=== PATIENT | female | born 1975 | race Two or more races ===

== ENCOUNTER 2016-09-24 21:21 | Emergency (ER) | payer SELFPAY ==
[2016-09-24 22:24] LABS: ABSOLUTE BASOPHILS # (AUTO) 0.1 10^3/uL (0.0-0.2); ABSOLUTE EOSINOPHILS # (AUTO) 0.2 10^3/uL (0.0-0.6); ABSOLUTE LYMPHOCYTES (AUTO) 3.2 10^3/uL (0.5-4.7); ABSOLUTE MONOCYTES (AUTO) 1.4 10^3/uL (0.1-1.4); ABSOLUTE NEUT (AUTO) 7.8 10^3/uL (1.7-8.2); BASOPHILS % (AUTO) 1.1 % (0-2); EOSINOPHILS % (AUTO) 1.2 % (0-6); HEMATOCRIT 35.9 % (36.0-47.0); HEMOGLOBIN 11.3 g/dL (12.0-15.5); LYMPHOCYTES % (AUTO) 25.2 % (13-45); MEAN CORPUSCULAR HEMOGLOBIN 23.1 pg (27.0-33.4); MEAN CORPUSCULAR HGB CONC 31.6 g/dL (32.0-36.0); MEAN CORPUSCULAR VOLUME 73 fl (80-97); MONOCYTES % (AUTO) 11.4 % (3-13); RED BLOOD COUNT 4.92 10^6/uL (3.72-5.28); RED CELL DISTRIBUTION WIDTH 17.8 % (11.5-14.0); SEGMENTED NEUTROPHILS % (AUTO) 61.1 % (42-78); WHITE BLOOD COUNT 12.7 10^3/uL (4.0-10.5)
[2016-09-24 22:35] LABS: APPEARANCE,URINE SLIGHTLY-CLOUDY; BILIRUBIN,URINE NEGATIVE (NEGATIVE); GLUCOSE, URINE NEGATIVE (NEGATIVE); KETONES,URINE NEGATIVE (NEGATIVE); LEUKOCYTE ESTERASE,URINE SMALL (NEGATIVE); NITRITE,URINE NEGATIVE (NEGATIVE); PROTEIN,URINE 30 mg/dL (NEGATIVE); URINE SPECIFIC GRAVITY 1.031; UROBILINOGEN,URINE NEGATIVE mg/dL (<2.0)
[2016-09-24 22:46] LABS: ALANINE AMINOTRANSFERASE 27 U/L (9-52); ALBUMIN 4.4 g/dL (3.5-5.0); ALKALINE PHOSPHATASE 153 U/L (38-126); ANION GAP 14 (5-19); ASPARTATE AMINO TRANSFERASE 24 U/L (14-36); BILIRUBIN,DIRECT 0.1 mg/dL (0.0-0.4); BILIRUBIN,TOTAL 0.3 mg/dL (0.2-1.3); BLOOD UREA NITROGEN 16 mg/dL (7-20); CALCIUM 10.2 mg/dL (8.4-10.2); CARBON DIOXIDE 26 mmol/L (22-30); CHLORIDE 103 mmol/L (98-107); CREATINE KINASE 363 U/L (30-135); CREATININE RESULT 0.83 mg/dL (0.52-1.25); GLUCOSE 79 mg/dL (75-110); POTASSIUM 3.8 mmol/L (3.6-5.0); SODIUM 142.5 mmol/L (137-145); TOTAL PROTEIN 7.6 g/dL (6.3-8.2)
[2016-09-24 22:54] LABS: URINE BARBITURATES SCREEN NEGATIVE; URINE METHADONE SCREEN NEGATIVE; URINE OPIATES LOW UNCONFIRMED POSITIVE; URINE PHENCYCLIDINE SCREEN NEGATIVE
[2016-09-24 23:02] LABS: CREATINE KINASE MB 2.73 ng/mL (<4.55)
[2016-09-24 23:11] LABS: TROPONIN I < 0.012 ng/mL
--- NOTE | 2016-09-24 23:29 | ER Document Report ---
ED General - General Chief Complaint: Overdose Stated Complaint: UNCONSCIOUS Time seen by provider: 23:29 Mode of Arrival: Ambulatory Information source: Patient Notes: This is a 41-year-old female with a history of hypertension, depression and anxiety. EMS was called to the home because of decreased responsiveness. Patient had reported that she had taken some pills. She had pinpoint pupils as reported by EMS and was given Narcan with some improvement. In the emergency room, the patient is lethargic but arousable with stimuli. She states that she has always been depressed but was not trying to kill herself. She states that she was trying to sleep and had taken Advil PM, trazodone, Flexeril, Lexapro and Ambien. Patient denies taking these pills and abundance but she is not able to tell me exactly how many pills she took. TRAVEL OUTSIDE OF THE [place] IN LAST 30 DAYS: No - HPI Onset: Just prior to arrival Onset/Duration: Sudden Quality of pain: No pain Severity: None Pain Level: Denies Associated symptoms: denies: Chest pain, Fever, Sinus pain/drainage, Shortness of breath Exacerbated by: Denies Relieved by: Denies Similar symptoms previously: No Recently seen / treated by doctor: No - Related Data Allergies/Adverse Reactions: azithromycin [Azithromycin] Allergy (Verified 05/12/15 15:19) erythromycin base [Erythromycin Base] Allergy (Verified 05/12/15 15:19) Sulfa (Sulfonamide Antibiotics) Allergy (Verified 05/12/15 15:19) tetracycline [Tetracycline] Allergy (Verified 05/12/15 15:19) Past Medical History - General Information source: Patient - Social History Smoking Status: Unknown if Ever Smoked Cigarette use (# per day): No Chew tobacco use (# tins/day): No Smoking Education Provided: No Frequency of alcohol use: unknown Drug Abuse: Other - Unknown Lives with: Family Family History: Reviewed & Not Pertinent, Other - Does not know her father, her mother is alive and well. Patient has suicidal ideation: No Patient has homicidal ideation: No - Past Medical History Cardiac Medical History: Reports: Hx Hypertension - borderline, no medications Pulmonary Medical History: Reports: None EENT Medical History: Reports: None Neurological Medical History: Reports: None Endocrine Medical History: Reports: None Renal/ Medical History: Reports: None Malignancy Medical History: Reports: None GI Medical History: Reports: None Musculoskeltal Medical History: Reports None Skin Medical History: Reports None Psychiatric Medical History: Reports: Hx Anxiety Traumatic Medical History: Reports: None Infectious Medical History: Reports: None Past Surgical History: Reports: Hx Tonsillectomy - adnoidectomy, Hx Tubal Ligation - Immunizations Hx Diphtheria, Pertussis, Tetanus Vaccination: Yes Review of Systems - Review of Systems Constitutional: No symptoms reported EENT: No symptoms reported Cardiovascular: No symptoms reported Respiratory: No symptoms reported Gastrointestinal: No symptoms reported Genitourinary: No symptoms reported Female Genitourinary: No symptoms reported Musculoskeletal: No symptoms reported Skin: No symptoms reported Hematologic/Lymphatic: No symptoms reported Neurological/Psychological: See HPI Physical Exam - Vital signs Vitals: BP Pulse Ox 145/87 H 100 09/24/16 21:26 09/24/16 21:26 Notes: Physical exam: GENERAL: 41-year-old female, lethargic, arousable with significant stimuli. HEAD: Atraumatic, normocephalic. EYES: Pupils equal round and reactive to light, extraocular movements intact, sclera anicteric, conjunctiva are normal. ENT: TMs normal, nares patent, oropharynx clear without exudates. Moist mucous membranes. NECK: Normal range of motion, supple without lymphadenopathy or JVD. LUNGS: Breath sounds clear to auscultation bilaterally and equal. No wheezes rales or rhonchi. HEART: Regular rate and rhythm without murmurs, rubs or gallops. ABDOMEN: Soft, normoactive bowel sounds. No tenderness to palpation. No guarding, no rebound. No masses appreciated. EXTREMITIES: Normal range of motion, no pitting or edema. No clubbing or cyanosis. NEUROLOGICAL: Lethargic, moving all extremities PSYCH: Depressed SKIN: Warm, Dry, normal turgor, no rashes or lesions noted. Course - Vital Signs Vital signs: Temp Pulse Resp BP Pulse Ox 97.7 F 19 136/75 H 100 09/24/16 21:29 09/24/16 23:01 09/24/16 23:01 09/24/16 21:26 - Laboratory Result Diagrams: 09/24/16 22:00 09/24/16 22:00 Laboratory results interpreted by me: 09/24/16 09/24/16 09/24/16 22:00 22:00 22:00 WBC 12.7 H Hgb 11.3 L Hct 35.9 L MCV 73 L MCH 23.1 L MCHC 31.6 L RDW 17.8 H Alkaline Phosphatase 153 H Creatine Kinase 363 H Urine Protein 30 H Ur Leukocyte Esterase SMALL H - Diagnostic Test Radiology reviewed: Image reviewed, Reports reviewed - CT of the head shows no acute intracranial pathology. Chest x-ray shows no infiltrates - EKG Interpretation by Me Rate: Normal Rhythm: NSR - EKG shows normal sinus rhythm with a ventricular rate of 84, no acute ST-T wave changes Discharge - Discharge Clinical Impression: overdose, depression, UTI Condition: Stable Disposition: PSYCH HOSP/UNIT
[2016-09-24] MEDS ORDERED: CEFTRIAXONE 1 GM/D5W RTU 50 ML IV ONE (23:48)
--- NOTE | 2016-09-25 08:39 | EKG REPORT ---
SEVERITY:- OTHERWISE NORMAL ECG - SINUS OR ECTOPIC ATRIAL RHYTHM : Confirmed by: Navarro Mckeon 25-Sep-2016 08:38:53
--- NOTE | 2016-09-25 09:29 | ER Document Report ---
Doctor's Note Notes: 09/25/16 09:29 Lab work vital signs have been reviewed. At this time patient is currently stable with no overnight events requiring no intervention at this time. Patient stable for transfer or other disposition
[2016-09-25] MEDS ORDERED: CETIRIZINE 5 MG TABLET PO ONE (09:59)
--- NOTE | 2016-09-25 10:51 | ER Document Report ---
ED Psych Disorder / Suicide - General Mode of Arrival: Ambulatory Information source: Patient, Parent, Relative TRAVEL OUTSIDE OF THE [place] IN LAST 30 DAYS: No - HPI Patient complains to provider of: Overdose - accidental Onset: Just prior to arrival Onset was: Sudden Suicide Risk Factors: Bipolar Situational problems related to: Spouse - found out cheated, process of separation Normal mood: Yes Associated symptoms: Normal affect, Normal mood, Depressed - pt endorses increase of depression secondary to spousal stressors, Unable to sleep - x 2 days prior to arrival Similar symptoms previously: No Recently seen / treated by doctor: Yes - Dr. Thomas last week <BRIA COOK - Last Filed: 09/25/16 10:45> <NIKHIL ARCOS - Last Filed: 09/25/16 10:53> - General Chief Complaint: Overdose Stated Complaint: UNCONSCIOUS - HPI Notes: Patient presents after she states she took her prescribed medications all at one time. Patient denies suicidal ideations or intent. Patient's mother is bedside and denies concerns patient was attempting to harm herself. (BRIA COOK) - Related Data Allergies/Adverse Reactions: azithromycin [Azithromycin] Allergy (Verified 05/12/15 15:19) erythromycin base [Erythromycin Base] Allergy (Verified 05/12/15 15:19) Sulfa (Sulfonamide Antibiotics) Allergy (Verified 05/12/15 15:19) tetracycline [Tetracycline] Allergy (Verified 05/12/15 15:19) Past Medical History - General Information source: Patient - Social History Smoking Status: Unknown if Ever Smoked Cigarette use (# per day): No Chew tobacco use (# tins/day): No Frequency of alcohol use: unknown Drug Abuse: Other - Unknown Lives with: Family Family History: Reviewed & Not Pertinent, Other - Does not know her father, her mother is alive and well. Patient has suicidal ideation: No Patient has homicidal ideation: No - Past Medical History Cardiac Medical History: Reports: Hx Hypertension - borderline, no medications Pulmonary Medical History: Reports: None EENT Medical History: Reports: None Neurological Medical History: Reports: None Endocrine Medical History: Reports: None Renal/ Medical History: Reports: None Malignancy Medical History: Reports: None GI Medical History: Reports: None Musculoskeltal Medical History: Reports None Skin Medical History: Reports None Psychiatric Medical History: Reports: Hx Anxiety Traumatic Medical History: Reports: None Infectious Medical History: Reports: None Past Surgical History: Reports: Hx Tonsillectomy - adnoidectomy, Hx Tubal Ligation - Immunizations Hx Diphtheria, Pertussis, Tetanus Vaccination: Yes <BRIA COOK - Last Filed: 09/25/16 10:45> Course - Laboratory Result Diagrams: 09/24/16 22:00 09/24/16 22:00 <BRIA COOK - Last Filed: 09/25/16 10:45> - Laboratory Result Diagrams: 09/24/16 22:00 09/24/16 22:00 <NIKHIL ARCOS - Last Filed: 09/25/16 10:53> - Re-evaluation Re-evalutation: 09/25/16 10:52 Patient coming in after accident overdose. Patient does state this was accidental overdose. Patient does have a urinary tract infection. The patient on Macrobid. Patient otherwise has been cleared from a psychiatric standpoint. Patient was discharged home. (NIKHIL ARCOS) - Vital Signs Vital signs: Temp Pulse Resp BP Pulse Ox 98.3 F 17 136/74 H 99 09/25/16 10:10 09/25/16 10:01 09/25/16 09:30 09/25/16 10:11 - Laboratory Laboratory results interpreted by me: 09/24/16 09/24/16 09/24/16 22:00 22:00 22:00 WBC 12.7 H Hgb 11.3 L Hct 35.9 L MCV 73 L MCH 23.1 L MCHC 31.6 L RDW 17.8 H Alkaline Phosphatase 153 H Creatine Kinase 363 H Urine Protein 30 H Ur Leukocyte Esterase SMALL H Salicylates Acetaminophen 09/24/16 22:00 WBC Hgb Hct MCV MCH MCHC RDW Alkaline Phosphatase Creatine Kinase Urine Protein Ur Leukocyte Esterase Salicylates < 1.0 L Acetaminophen < 10 L Discharge <BRIA COOK - Last Filed: 09/25/16 10:45> <NIKHIL ARCOS - Last Filed: 09/25/16 10:53> - Discharge Clinical Impression: overdose, depression, UTI, Bipolar 1 disorder, depressed, moderate Condition: Stable Disposition: HOME, SELF-CARE Instructions: Bipolar Disorder ([facility]), Depression ([facility]) Additional Instructions: Please follow up with your psychiatric provider to discuss your reported concerns regarding your medications. Please also follow up to request more frequent therapy appointments to assist you in processing your increased stressors. Please take your medications only as prescribed. You have been provided with community resources to include mobile crisis. Please return to the ED for SI. Prescriptions: Nitrofurantoin/Nitrofuran Mac [Macrobid 100 mg Capsule] 1 tab PO BID #20 capsule
[2016-09-25 11:02] VITALS: BP 131/72
--- NOTE | 2016-09-25 11:22 | PSYCHOLOGICAL NOTE ---
Psych Note - Psych Note Psych Note: Patient is a 41 year old female who presents via EMS last night after ingesting a number of pills with unclear intent. Patient did note to ED MD that she was attempting to go to sleep, but could not provide quantity of pills ingested. Patient was given Narcan by EMS with some noted improvement. Patient was placed on IVC and held overnight for further observation and disposition. Patient this morning states she was not attempting suicide, and is not suicidal. 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 She states she did not take any of her medications prior to going, and actually stopped part way through because of a headache. Patient states in addition to being out in the heat, she ate only half a hamburger and drank a bottle of water. Patient states when she got home, she took all of her prescribed medications at once with the plan to go to bed. Patient states she saw her provider, Dr. Thomas at [facility] and reported continued sleep probs even with her prescribed Ambien. Patient states Dr. Thomas discontinued the Ambien and prescribed her something stronger. She states last night was her first time taking the pill. Patient does endorse an increase in social stressors, specifically related to her and his alleged infidelity (discovered this weekend). She states she has children and a job she loves and does not want to . Patient reports one prior suicide attempt 10+ years ago and denies remembering her method. Otherwise, patient states she feels her Lexapro and Wellbutrin work well, but reports she does not like also taking Ativan for anxiety in the afternoon. She additionally reports she is prescribed Phentermine for weight loss, and that her psychiatrist is aware of this prescription. Patient provides verbal consent to speak with her mother who is bedside. Patient's mother adamant that her only concern is the number of medications she is prescribed, and not that she would attempt suicide. MOther offered no other reports or concerns. Patient is A&O x4. Mood is happy with smiling/normal affect. Patient denies SI/ HI, intent, plan, or means. Patient denies A/V H; delusions not noted. Thought processes were organized. Conversational speech was WNL. Intellectual abilities were estimated within average range. Attention and focus were fair. Insight and impulse control were fair; judgment poor. Unspecified Bipolar and Related Disorder, per history Unspecified Anxiety Disorder, per history Patient is psychiatrically cleared and recommended for rescind IVC to discharge to her mother. Patient denies suicide intent. Patient's mother denies concerns related to self harm and or intentionally overdosing. Patient is agreeable to follow up with her provider, and also request more frequent therapy appointments. 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 I consulted with Dr. Cesar in regards to the care and management of this patient. ED MD is in agreement with disposition and recommendations.
== END 2016-09-25 11:10 | disposition home or self-care (01) ==
LOC: ER 21:21
DX: T50.901A Poisoning by unspecified drugs, medicaments and biological substances, accidental (unintentional), initial encounter (principal); R53.83 Other fatigue; F31.9 Bipolar disorder, unspecified; N39.0 Urinary tract infection, site not specified; Z63.5 Disruption of family by separation and divorce; Z88.1 Allergy status to other antibiotic agents; Z88.2 Allergy status to sulfonamides
CPT/HCPCS: 93005; 99285; 51701; 96365; 36415; 87086; 82553; 82550; 80307 ×3; 85025; 80053; 81001; 84484; 71010; 70450; 93010; J0696; J3490

== ENCOUNTER 2018-11-05 12:20 | Emergency (ER) | payer BC ==
[2018-11-05] MEDS ORDERED: MECLIZINE HCL 25 MG TABLET PO ONE (13:40)
--- NOTE | 2018-11-05 13:42 | ER Document Report ---
ED Medical Screen (RME) - General Chief Complaint: Vertigo Stated Complaint: DIZZINESS Time Seen by Provider: 11/05/18 13:34 Mode of Arrival: Ambulatory Information source: Patient TRAVEL OUTSIDE OF THE [place] IN LAST 30 DAYS: No - HPI Patient complains to provider of: DIZZINESS Notes: 11/05/18 13:40 Patient here with complaints of feeling dizzy. She states that she has felt dizzy for about 4 weeks now. She has had some intermittent headaches with it as well. She states that it feels like her visions causing her to see double and triple at times. She feels like that forwards or the hoang are moving. She states that is been constant. No injury. No blood thinners. Exam No distress, nontoxic. Lungs clear and equal throughout. Heart sounds normal. Nonfocal neuro exam. Plan CBC, CMP, chest x-ray, EKG, head CT due to the fact that the patient is having constant problems with dizziness and changes in vision. An initial examination was made on the patient as part of the triage process, and it was determined a more comprehensive evaluation was necessary. Initial labs were ordered and patient was transferred to another provider in the ED who assumed care and finished evaluation and plan. - Related Data Allergies/Adverse Reactions: azithromycin [Azithromycin] Allergy (Verified 05/12/15 15:19) erythromycin base [Erythromycin Base] Allergy (Verified 05/12/15 15:19) Sulfa (Sulfonamide Antibiotics) Allergy (Verified 05/12/15 15:19) tetracycline [Tetracycline] Allergy (Verified 05/12/15 15:19) Past Medical History - Social History Chew tobacco use (# tins/day): No Frequency of alcohol use: None Drug Abuse: None - Past Medical History Cardiac Medical History: Reports: Hx Hypertension - borderline, no medications Renal/ Medical History: Denies: Hx Peritoneal Dialysis Psychiatric Medical History: Reports: Hx Anxiety, Hx Depression Past Surgical History: Reports: Hx Tonsillectomy - adnoidectomy, Hx Tubal Ligation - Immunizations Hx Diphtheria, Pertussis, Tetanus Vaccination: Yes Physical Exam - Vital signs Vitals: Temp Pulse Resp BP Pulse Ox 98.7 F 68 16 156/104 H 99 11/05/18 12:27 11/05/18 12:27 11/05/18 12:27 11/05/18 12:27 05/20/19 12:27 Course - Vital Signs Vital signs: Temp Pulse Resp BP Pulse Ox 98.7 F 68 16 156/104 H 99 11/05/18 12:27 11/05/18 12:27 11/05/18 12:27 11/05/18 12:27 11/05/18 12:27
[2018-11-05 14:40] LABS: ABSOLUTE BASOPHILS # (AUTO) 0.1 10^3/uL (0.0-0.2); ABSOLUTE EOSINOPHILS # (AUTO) 0.2 10^3/uL (0.0-0.6); ABSOLUTE LYMPHOCYTES (AUTO) 2.3 10^3/uL (0.5-4.7); ABSOLUTE MONOCYTES (AUTO) 0.8 10^3/uL (0.1-1.4); ABSOLUTE NEUT (AUTO) 5.4 10^3/uL (1.7-8.2); BASOPHILS % (AUTO) 0.6 % (0-2); HEMATOCRIT 42.4 % (36.0-47.0); LYMPHOCYTES % (AUTO) 26.8 % (13-45); MEAN CORPUSCULAR HEMOGLOBIN 27.4 pg (27.0-33.4); MEAN CORPUSCULAR HGB CONC 33.1 g/dL (32.0-36.0); MEAN CORPUSCULAR VOLUME 83 fl (80-97); MONOCYTES % (AUTO) 9.1 % (3-13); PLATELET COUNT 263 10^3/uL (150-450); RED BLOOD COUNT 5.11 10^6/uL (3.72-5.28); RED CELL DISTRIBUTION WIDTH 13.7 % (11.5-14.0); SEGMENTED NEUTROPHILS % (AUTO) 61.5 % (42-78); TOTAL CELLS COUNTED % (AUTO) 100 %; WHITE BLOOD COUNT 8.7 10^3/uL (4.0-10.5)
--- NOTE | 2018-11-05 14:42 | RADIOLOGY REPORT (SQ) ---
EXAM DESCRIPTION: CT HEAD WITHOUT COMPLETED DATE/TIME: 11/05/2018 2:32 pm REASON FOR STUDY: dizziness COMPARISON: 09/24/2016. TECHNIQUE: Axial images acquired through the brain without intravenous contrast. Images reviewed wi th bone, brain and subdural windows. Additional sagittal and coronal reconstructions were generated. Images stored on PACS. All CT scanners at this facility use dose modulation, iterative reconstruction, and/or weight based d osing when appropriate to reduce radiation dose to as low as reasonably achievable (ALARA). [facility]: Dose Right [facility]: CareDose [facility]: Dose Right [facility]: Teradose 4D [facility]: [employer] RADIATION DOSE: mGy. LIMITATIONS: None. FINDINGS: VENTRICLES: Normal size and contour. CEREBRUM: No masses. No hemorrhage. No midline shift. No evidence for acute infarction. Normal gra y/white matter differentiation. No areas of low density in the white matter. CEREBELLUM: No masses. No hemorrhage. No alteration of density. No evidence for acute infarction. EXTRAAXIAL SPACES: No fluid collections. No masses. ORBITS AND GLOBE: No intra- or extraconal masses. Normal contour of globe without masses. CALVARIUM: No fracture. PARANASAL SINUSES: Mucous membrane thickening in the maxillary and ethmoid sinuses. SOFT TISSUES: No mass or hematoma. OTHER: No other significant finding. IMPRESSION: NORMAL BRAIN CT WITHOUT CONTRAST. SINUS DISEASE. EVIDENCE OF ACUTE STROKE: NO. COMMENT: Quality ID # [id number]: Final reports with documentation of one or more dose reduction techniques (e.g., Automated exposure control, adjustment of the mA and/or kV according to patient size, use of iterative reconstruction technique) TECHNICAL DOCUMENTATION: JOB ID: [id number] [employer]- All Rights Reserved Reading location - IP/workstation name: [email or web address]
[2018-11-05 14:56] LABS: ALANINE AMINOTRANSFERASE 19 U/L (9-52); ALBUMIN 4.4 g/dL (3.5-5.0); ALKALINE PHOSPHATASE 142 U/L (38-126); ANION GAP 11 (5-19); ASPARTATE AMINO TRANSFERASE 15 U/L (14-36); BILIRUBIN,DIRECT 0.2 mg/dL (0.0-0.4); BILIRUBIN,TOTAL 0.4 mg/dL (0.2-1.3); BLOOD UREA NITROGEN 10 mg/dL (7-20); CALCIUM 9.8 mg/dL (8.4-10.2); CARBON DIOXIDE 25 mmol/L (22-30); CHLORIDE 105 mmol/L (98-107); GLUCOSE 78 mg/dL (75-110); POTASSIUM 4.3 mmol/L (3.6-5.0); SODIUM 140.5 mmol/L (137-145); TOTAL PROTEIN 7.8 g/dL (6.3-8.2)
--- NOTE | 2018-11-05 14:59 | RADIOLOGY REPORT (SQ) ---
EXAM DESCRIPTION: CHEST SINGLE VIEW COMPLETED DATE/TIME: 11/05/2018 2:42 pm REASON FOR STUDY: DIZZINESS COMPARISON: 05/12/2015 EXAM PARAMETERS: NUMBER OF VIEWS: One view. TECHNIQUE: Single frontal radiographic view of the chest acquired. RADIATION DOSE: NA LIMITATIONS: None. FINDINGS: LUNGS AND PLEURA: No opacities, masses or pneumothorax. No pleural effusion. MEDIASTINUM AND HILAR STRUCTURES: No masses. Contour normal. HEART AND VASCULAR STRUCTURES: Heart normal in size. Normal vasculature. BONES: No acute findings. HARDWARE: None in the chest. OTHER: No other significant finding. IMPRESSION: NO ACUTE RADIOGRAPHIC FINDING IN THE CHEST. TECHNICAL DOCUMENTATION: JOB ID: [id number] [employer]- All Rights Reserved Reading location - IP/workstation name: [email or web address]
[2018-11-05] MEDS ORDERED: DEXAMETHASONE 4 MG TABLET PO ONE (20:42)
--- NOTE | 2018-11-05 20:48 | ER Document Report ---
ED General - General Chief Complaint: Vertigo Stated Complaint: DIZZINESS Time Seen by Provider: 11/05/18 13:34 Primary Care Provider: HUGO BAILON MD [Primary Care Provider] - Follow up tomorrow Mode of Arrival: Ambulatory Notes: Patient is a 43-year-old female with past medical history of morbid obesity, essential hypertension, presents complaining of intermittent blurring of vision, dizziness, vertigo. Patient states that she gets these symptoms every year usually lasting for 2 to 3 weeks usually in the spring to summer months. States that however she has had symptoms ongoing for the past 4 weeks. Nothing is new or different that prompted a visit to the emergency department today. She regards her symptoms as being moderate to severe, intermittent in nature. Nothing seems to improve or worsen the frequency of her symptoms. She states that in the past she has taken meclizine with some relief. Does not currently have this medication available to her. Has not seen her primary care physician regarding today's concerns. Has not had any falls, continues to be able to d rive and work with her symptoms. TRAVEL OUTSIDE OF THE [place] IN LAST 30 DAYS: No - Related Data Allergies/Adverse Reactions: azithromycin [Azithromycin] Allergy (Verified 05/12/15 15:19) erythromycin base [Erythromycin Base] Allergy (Verified 05/12/15 15:19) Sulfa (Sulfonamide Antibiotics) Allergy (Verified 05/12/15 15:19) tetracycline [Tetracycline] Allergy (Verified 05/12/15 15:19) Past Medical History - General Information source: Patient - Social History Smoking Status: Current Every Day Smoker Chew tobacco use (# tins/day): No Frequency of alcohol use: None Drug Abuse: None Lives with: Family Family History: Reviewed & Not Pertinent, Other - Does not know her father, her mother is alive and well. Patient has suicidal ideation: No Patient has homicidal ideation: No - Past Medical History Cardiac Medical History: Reports: Hx Hypertension - borderline, no medications Renal/ Medical History: Denies: Hx Peritoneal Dialysis Psychiatric Medical History: Reports: Hx Anxiety, Hx Depression Past Surgical History: Reports: Hx Tonsillectomy - adnoidectomy, Hx Tubal Ligation - Immunizations Hx Diphtheria, Pertussis, Tetanus Vaccination: Yes Review of Systems - Review of Systems Notes: Constitutional: Negative for fever. HENT: Negative for sore throat. Eyes: Positive for intermittent blurring of vision Cardiovascular: Negative for chest pain. Respiratory: Negative for shortness of breath. Gastrointestinal: Negative for abdominal pain, vomiting or diarrhea. Genitourinary: Negative for dysuria. Musculoskeletal: Negative for back pain. Skin: Negative for rash. Neurological: Negative for headaches, weakness or numbness. 10 point ROS negative except as marked above and in HPI. Physical Exam - Vital signs Vitals: Temp Pulse Resp BP Pulse Ox 98.7 F 68 16 156/104 H 99 11/05/18 12:27 11/05/18 12:27 11/05/18 12:27 11/05/18 12:27 11/05/18 12:27 Interpretation: Hypertensive Notes: PHYSICAL EXAMINATION: GENERAL: Well-appearing, well-nourished and in no acute distress. HEAD: Atraumatic, normocephalic. EYES: Pupils equal round and reactive to light, extraocular movements intact, sclera anicteric, conjunctiva are normal. ENT: nares patent, oropharynx clear without exudates. Moist mucous membranes. NECK: Normal range of motion, supple without lymphadenopathy LUNGS: Breath sounds clear to auscultation bilaterally and equal. No wheezes rales or rhonchi. HEART: Regular rate and rhythm without murmurs ABDOMEN: Soft, nontender, normoactive bowel sounds. No guarding, no rebound. No masses appreciated. EXTREMITIES: Normal range of motion, no pitting or edema. No cyanosis. NEUROLOGICAL: Face symmetric. Tongue protrudes midline. Extraocular motions intact. Pupils are 2 mm and equally reactive. Normal speech, normal gait. 5 out of 5 strength in both the distal and proximal upper and lower extremities bilaterally. Sensation is grossly intact throughout. Finger to nose testing normal. Pronator drift normal. PSYCH: Normal mood, normal affect. SKIN: Warm, Dry, normal turgor, no rashes or lesions noted. Course - Re-evaluation Re-evalutation: 11/05/18 20:43 Presentation of vertigo that appears most consistent with a variant of a peripheral vertigo. Patient has no abnormal findings on exam. Normal cerebellar testing, steady even gait. Able to walk on heels and toes. Normal proprioception. Patient is not an elevated risk for a cerebellar infarction given age, absence of significant risk factors. Patient did have improvement of symptoms here in the emergency department with meclizine. Has a history of recurrent symptoms same as today. In triage a CT of the head was ordered. This is noted to be normal although does not effectively evaluate the posterior fossa to exclude a cerebellar event. I do not believe that the patient has had a cerebellar infarction given her exam, ability to ambulate, and recurrent nature of her symptoms. Patient also appears very well, is eating a bag of Bhak[employer] when I walk into the room. I do not believe neurologic imaging is indicated at this time based on physical examination and clinical history. Symptoms could also alternatively be related to the patient's uncontrolled hypertension she is already on 3 antihypertensives the name of which she cannot recall and is continue to work with her primary care doctor regarding this issue. At this time will discharge with return precautions and follow-up recommendations. Verbal discharge instructions given a the bedside and opportunity for questions given. Medication warnings reviewed. Patient is in agreement with this plan and has verbalized understanding of return precautions and the need for primary care follow-up in the next 24-72 hours. - Vital Signs Vital signs: Temp Pulse Resp BP Pulse Ox 98.6 F 69 16 189/91 H 100 11/05/18 21:01 11/05/18 21:01 11/05/18 21:01 11/05/18 21:01 11/05/18 21:01 - Laboratory Result Diagrams: 11/05/18 14:09 11/05/18 14:09 Laboratory results interpreted by me: 11/05/18 14:09 Alkaline Phosphatase 142 H - Diagnostic Test Radiology reviewed: Image reviewed, Reports reviewed Radiology results interpreted by me: 11/05/18 20:44 CT head: No acute intracranial bleed or mass - EKG Interpretation by Me Additional EKG results interpreted by me: 11/05/18 20:48 Sinus rhythm, rate 66. No ST elevations or depressions. QTC is 461. Discharge - Discharge Clinical Impression: Vertigo, Recurrent dizziness Condition: Good Disposition: HOME, SELF-CARE Additional Instructions: You were seen today for lightheadedness/dizziness. The exact cause of your symptoms is unclear but your workup here is reassuring without any concerning findings. You need to follow-up with an eye physician as we discussed as well as your primary doctor. Please follow closely with your primary care physician in the next 1-3 days. Return if you pass out, become unable to walk, develop weakness/numbness, have persistent vomiting, chest pain, shortness of breath or any other symptoms that are concerning to you. Begin taking cetirizine 10 mg twice daily. You may take meclizine as needed for dizziness. Prescriptions: Meclizine HCl [Antivert 25 mg Tablet] 25 mg PO TID PRN #21 tablet PRN Reason: Forms: Return to Work Referrals: HUGO BAILON MD [Primary Care Provider] - Follow up tomorrow
[2018-11-05 21:02] VITALS: BP 189/91
--- NOTE | 2018-11-07 11:25 | EKG REPORT ---
SEVERITY:- NORMAL ECG - SINUS RHYTHM : Confirmed by: Navarro Mckeon 07-Nov-2018 11:23:59
== END 2018-11-05 21:14 | disposition home or self-care (01) ==
LOC: ER 12:20
DX: R42 Dizziness and giddiness (principal); F17.200 Nicotine dependence, unspecified, uncomplicated; I10 Essential (primary) hypertension; E66.01 Morbid (severe) obesity due to excess calories; Z88.2 Allergy status to sulfonamides; Z88.3 Allergy status to other anti-infective agents; Z98.51 Tubal ligation status
CPT/HCPCS: 36415; 70450; 71045; 80053; 85025; 93005; 93010; 99284

== ENCOUNTER 2019-03-25 08:05 | Emergency (ER) | payer SELFPAY ==
--- NOTE | 2019-03-25 09:39 | ER Document Report ---
HPI - HPI Time Seen by Provider: 03/25/19 09:13 Pain Level: 2 Notes: Patient is an otherwise healthy 43-year-old female presenting to the emergency department chief complaint of cough that has been ongoing for nearly 3 weeks. Patient denies any fevers but reports all over body aches. She states she has been taking [id number] medications with no relief. Patient states she cannot take a deep breath because it will send her into a bronchospasm. Patient does report a history of pneumonia but denies any other respiratory illnesses. - CONSTITUTIONAL Constitutional: DENIES: Fever, Chills - EENT EENT: DENIES: Sore Throat, Ear Pain, Eye problems - NEURO Neurology: DENIES: Headache, Weakness, Vision blurred, Dizzinesss / Vertigo - CARDIOVASCULAR Cardiovascular: REPORTS: Chest pain - upper chest - RESPIRATORY Respiratory: REPORTS: Coughing - GASTROINTESTINAL Gastrointestinal: DENIES: Abdominal Pain, Black / Bloody Stools - URINARY Urinary: DENIES: Dysuria, Urgency, Frequency - REPRODUCTIVE Reproductive: DENIES: : - MUSCULOSKELETAL Musculoskeletal: DENIES: Extremity pain Past Medical History - General Information source: Patient - Social History Smoking Status: Never Smoker Chew tobacco use (# tins/day): No Frequency of alcohol use: Social Drug Abuse: None Family History: Reviewed & Not Pertinent, Other - Does not know her father, her mother is alive and well. Patient has suicidal ideation: No Patient has homicidal ideation: No - Past Medical History Cardiac Medical History: Reports: Hx Hypertension Renal/ Medical History: Denies: Hx Peritoneal Dialysis Psychiatric Medical History: Reports: Hx Anxiety, Hx Depression Past Surgical History: Reports: Hx Hysterectomy, Hx Tonsillectomy - adnoidectomy, Hx Tubal Ligation - Immunizations Hx Diphtheria, Pertussis, Tetanus Vaccination: Yes Vertical Provider Document - CONSTITUTIONAL Notes: PHYSICAL EXAMINATION: GENERAL: Well-appearing, well-nourished and in no acute distress. HEAD: Atraumatic, normocephalic. EYES: Pupils equal round extraocular movements intact, conjunctiva are normal. ENT: Nares patent no rhinorrhea noted, bilateral TMs unremarkable, oropharynx nonerythematous and without exudates. NECK: Normal range of motion, no cervical lymphadenopathy. LUNGS: No respiratory distress, lung sounds clear and equal bilaterally, bronchospasm with deep cough. Musculoskeletal: Normal range of motion NEUROLOGICAL: Normal speech, normal gait. PSYCH: Normal mood, normal affect. SKIN: Warm, Dry, normal turgor, no rashes or lesions noted. - INFECTION CONTROL TRAVEL OUTSIDE OF THE [place] IN LAST 30 DAYS: No Course - Vital Signs Vital signs: Temp Pulse Resp BP Pulse Ox 98.4 F 83 20 211/94 H 98 03/25/19 08:09 03/25/19 08:09 03/25/19 08:09 03/25/19 08:09 03/25/19 08:09 Discharge - Discharge Clinical Impression: Bronchitis, Bronchospasm Condition: Stable Disposition: HOME, SELF-CARE Additional Instructions: Bronchitis with Bronchospasm (Wheezing) You have bronchitis with bronchospasm (wheezing). Sometimes people develop wheezing with a chest cold. This occurs either because of an underlying tendency toward asthma or because the virus itself irritates the bronchial tubes. This irritation causes cough, shortness of breath, and wheezing. Emergency treatment of bronchospasm may include adrenaline shots or bronchodilator aerosol. You may feel lightheaded and have a rapid pulse for an hour or two. Rest and get plenty of fluids. At home, we'll treat you with a bronchodilator inhaler. Corticosteroids may be required for some patients. Until you recover, avoid chemical fumes, dusts, pollens, and exercising in very cold or dry air. If you smoke, stop now! Most cases of bronchitis get better without antibiotics. We prescribe antibiotics when we believe bacteria are damaging your airways, or if there's high risk the bronchitis will worsen into pneumonia. Increase your fluid intake. A cool mist humidifier may make your lungs more comfortable. An expectorant (cough medicine that loosens phlegm) can help. Repeated episodes of bronchitis and bronchospasm may result in lung damage -- for example, chronic bronchitis, recurrent pneumonias, or emphysema. If you develop a fever, increased wheezing, chest pain, or severe shortness of breath, you should contact the doctor immediately. Please take all medications as prescribed. Drink plenty of fluids as outlined above. Rest. Return to the emergency department with any of the above warning signs. Prescriptions: Amox Tr/Potassium Clavulanate [Augmentin 875-125 mg Tablet] 1 tab PO BID #20 tablet Codeine Phosphate/Guaifenesin [Cheratussin AC Syrup] 10 ml PO QID #120 ml Prednisone [Deltasone 20 mg Tablet] 3 tab PO DAILY 5 Days #15 tablet Fluconazole [Diflucan] 150 mg PO ONCE PRN #1 tablet PRN Reason: Forms: Return to Work Referrals: HUGO BAILON MD [Primary Care Provider] - Follow up as needed
--- NOTE | 2019-03-25 10:09 | RADIOLOGY REPORT (SQ) ---
EXAM DESCRIPTION: CHEST 2 VIEWS COMPLETED DATE/TIME: 03/25/2019 9:46 am REASON FOR STUDY: cough x2 weeks COMPARISON: Chest films 05/12/2015, 11/05/2018 EXAM PARAMETERS: NUMBER OF VIEWS: two views TECHNIQUE: Digital Frontal and Lateral radiographic views of the chest acquired. RADIATION DOSE: NA LIMITATIONS: none FINDINGS: LUNGS AND PLEURA: No opacities, masses or pneumothorax. No pleural effusion. MEDIASTINUM AND HILAR STRUCTURES: No masses or contour abnormalities. HEART AND VASCULAR STRUCTURES: Heart normal size. No evidence for failure. BONES: No acute findings. HARDWARE: None in the chest. OTHER: No other significant finding. IMPRESSION: NO ACUTE RADIOGRAPHIC FINDING IN THE CHEST. TECHNICAL DOCUMENTATION: JOB ID: [id number] [employer]- All Rights Reserved Reading location - IP/workstation name: [email or web address]
[2019-03-25 10:26] VITALS: BP 217/90
== END 2019-03-25 10:26 | disposition home or self-care (01) ==
LOC: ER 08:05
DX: J40 Bronchitis, not specified as acute or chronic (principal); R05 Cough; M79.10 Myalgia, unspecified site; R07.9 Chest pain, unspecified; I10 Essential (primary) hypertension
CPT/HCPCS: 71046; 99283